=== PATIENT | male | born 1955 | race Caucasian/White ===

== ENCOUNTER 2018-08-27 16:15 | Emergency (ER) | payer MEDICARE, SELFPAY ==
[2018-08-27 16:16] VITALS: BP 95/61; PULSE 92; RESP 17; RESP 20; TEMP 37; O2SAT 98; O2SAT 99; BMI 19.3
[2018-08-27 16:24] VITALS: BP 95/61; PULSE 97; RESP 16; TEMP 37; O2SAT 99
[2018-08-27] MEDS: 0.9% Normal Saline 1,000 ML 999 ML IV ×2 (17:05→17:46)
--- NOTE | 2018-08-27 17:12 | ED.DCSUM_ITS ---
History of Present Illness Chief Complaint: General Illness Detail of Chief Complaint: malaise, dehydrated Informant: Patient, PCP Onset: Days - 2-3 Timing: Continuous Narrative: Patient has lung cancer, he had a CT showing a cavitary lesion in his right upper lobe, the tumor was smaller but the question of infection was raised so he was placed on Levaquin a couple days ago as a result. Since then he has felt nauseated, decreased appetite, states everything tastes bad but he is also getting IV chemotherapy sessions. He has had significantly decreased oral food and liquid intake is feeling lightheaded when he stands and had a near syncopal episode yesterday. Was seen in the office today and sent to the ER for IV fluids and reevaluation. He has had no fevers. States he has been breathing well, has a chronic cough that is unchanged. Nonproductive. No vomiting or diarrhea. - Past Medical History (1) Adenocarcinoma of lung Status: Chronic (2) COPD (chronic obstructive pulmonary disease) Status: Chronic (3) Atrial fibrillation Status: Chronic (4) Adrenal tumor Status: Chronic Past Medical History - Allergies and Home Meds Allergies/Adverse Reactions: Allergies No Known Allergies Allergy (Verified 08/27/18 16:24) Primary Care Physician: Melanie Herrera MD [STAFF PHYSICIAN] - Surgical History: tonsillectomy, - - left adrenalectomy; lung Smoking Status: Current every day smoker Drugs: None Review of Systems General: Reports: Malaise. Denies: Chills, Fever, Sweats Eyes: Denies: Visual changes - bilaterally, Diplopia ENT: Denies: Rhinorrhea, Sore throat Cardiovascular: Denies: Chest pain, Palpitations Respiratory: Reports: Cough, Dyspnea on exertion. Denies: Dyspnea Gastrointestinal: Reports: Nausea. Denies: Abdominal pain, Vomiting, Diarrhea, Melena, Hematochezia Genitourinary: Denies: Dysuria, Hematuria, Frequency Musculoskeletal: Denies: Back pain, Extremity Pain Skin: Denies: Rash, Wounds Neurological: Denies: Headache, Weakness, Numbness Physical Exam Vital Signs/Narrative: Vital Signs Temp Pulse Resp BP Pulse Ox 08/27/18 16:24 98.6 F 97 16 95/61 99 08/27/18 16:16 98.6 F 92 20 H 95/61 99 Inital Vital Signs reviewed: Yes General: Well nourished, Well developed, No Acute Distress Head: Normocephalic, Atraumatic Eyes: Perrl, EOMI ENT: Moist mucous membranes, No rhinorrhea Neck: Supple, Nontender Cardiovascular: Regular rate, Regular rhythm, No murmurs Respiratory: No distress, Chest nontender, Rhonchi - bilat, Wheezing - end-exp, bilat Abdomen: Soft, Nontender, Nondistended, Normal bowel sounds Back: Nontender, Normal Inspection Extremities: Nontender, No edema. Negative for: Calf Tenderness Skin: Normal color, No rash, No Trauma Neurological: Alert, Oriented x3, Cranial nerves II-XII grossly intact, Normal Strength, Normal Sensation Psychological: Normal affect, Normal Mood Diagnostic/Tx/Re-eval Laboratory Results 08/27/18 08/27/18 16:37 16:37 WBC 3.9 L RBC 2.27 L Hgb 7.3 L Hct 21.7 L MCV 95.6 H MCH 32.2 H MCHC 33.6 RDW 16.6 H RDW Differential 57.5 H Plt Count 386 MPV 9.5 Immature Gran % (Auto) 0.500 Neut % (Auto) 53.8 Lymph % (Auto) 43.2 H [place] % (Auto) 2.0 Eos % (Auto) 0.0 Baso % (Auto) 0.5 Absolute Neuts (auto) 2.1 Absolute Lymphs (auto) 1.69 Total Counted Not Reportable Differential Comment SCANNED Sodium 131 L Potassium 3.6 Chloride 98 Carbon Dioxide 25.0 Anion Gap 8 BUN 13 Creatinine 1.00 Estim Creat Clear Calc 62.81 Est GFR (MDRD) Af Amer 97 Est GFR (MDRD) Non-Af 80 BUN/Creatinine Ratio 13.0 Glucose 136 H Calcium 8.0 L - Medical Decision Making Patient was given 2 L of IV fluids, initially his blood pressure was in the 90s, afterwards it was 87 systolic. At the office his systolics were in the 105 area. He was also given some Thorazine which seemed to help his hiccups. He feels a little better. Labs look okay except for his hemoglobin which is 7.3. I have no old values to compare with. I discussed with the oncologist on-call for Dr. Herrera, Dr. Duggan. He did not have access to his old values either. He agrees that since the patient has borderline blood pressure and borderline anemia that requires transfusion if it was lower, it would be reasonable to give him a unit of blood now since he is continuing to get chemotherapy. I discussed this with the patient, he really does not want to stay in the ER anymore tonight, states he will follow-up with his oncologist after the weekend and get blood bed if he needs it, he stood up and did not feel lightheaded and basically felt much better and closer to his baseline. I am comfortable with him going home following up or returning if worse. His repeat BP is 103/58. ED Disposition - Plan for ED Patient: Disposition: Home or Assisted Living Diagnosis: Mild dehydration, Anemia, Adenocarcinoma of lung Instructions: Anemia Referrals: Melanie Herrera MD [STAFF PHYSICIAN] - 3-5 Days
[2018-08-27 17:24] LABS: Absolute Lymphocyte Count 1.69 X10^3/ul (0.83-4.51); Absolute Neutrophil Count 2.1 X10^3/uL (2.0-7.7); Basophil# 0.02 X10^3/uL; Basophil% 0.5 % (0-1); Differential Indicated SCAN CRITERIA MET; Hematocrit 21.7 % (40-54); Hemoglobin 7.3 g/dl (13.0-16.5); Lymphocyte # 1.69 X10^3/ul (4.0); Lymphocyte % 43.2 % (19-41); Mean Corp Hgb Conc 33.6 g/gl (32-36); Mean Corpuscular Hgb 32.2 pg (27.0-32.0); Mean Corpuscular Volume 95.6 fL (80-94); Mean Platelet Vol. 9.5 fl (6.2-12.0); Monocyte# 0.08 X10^3/uL; Neutrophil % 53.8 % (47-70); POSITIVE COUNT NO; POSITIVE DIFFERENTIAL NO; POSITIVE MORPHOLOGY YES; Platelet Count 386 K/mm3 (150-450); RBC Distribution Width CV 16.6 % (11.6-14.6); RBC Distribution Width SD 57.5 fl (35.1-43.9); Red Blood Count 2.27 M/mm3 (4.6-6.2); White Blood Count 3.9 K/mm3 (4.4-11.0)
[2018-08-27 17:26] LABS: Anion Gap 8 (5-15); BUN 13 mg/dL (7-18); Chloride 98 mmol/L (98-107); EST Glomerular Filtration Rate 80 mL/min (>60); Est Glom Filt Rate - Afr Amer 97 mL/min (>60); Estimated Creatinine Clearance 62.81 ml/min; Glucose 136 mg/dL (74-106); Potassium 3.6 mmol/L (3.5-5.1); Sodium Level 131 mmol/L (136-145)
[2018-08-27 17:40] LABS: Differential Comment SCANNED
[2018-08-27] MEDS: ChlorproMAZINE 50 MG/2 ML Ampul 12.5 MG IV (17:49)
[2018-08-27 18:19] VITALS: BP 87/53; PULSE 78; RESP 23; TEMP 37.3; O2SAT 95; O2SAT 96
[2018-08-27 19:37] VITALS: BP 102/66; PULSE 93; RESP 16; TEMP 36.8; O2SAT 96
--- NOTE | 2018-08-27 19:37 | ED.RN ---
PT AMBULATED IN HALLWAY, STATES HE FEELS STRENGTH IS BACK TO BASELINE.
[2018-08-27 20:17] VITALS: BP 93/59; PULSE 81; RESP 16; RESP 17; O2SAT 97
== END 2018-08-27 20:49 | disposition home or self-care (01) ==
PROVIDERS: Emergency Provider Emergency Medicine
DX: E86.0 Dehydration (principal); D64.9 Anemia, unspecified; C34.11 Malignant neoplasm of upper lobe, right bronchus or lung; J44.9 Chronic obstructive pulmonary disease, unspecified; I48.91 Unspecified atrial fibrillation; F17.200 Nicotine dependence, unspecified, uncomplicated; Z79.51 Long term (current) use of inhaled steroids; Z79.82 Long term (current) use of aspirin
CPT/HCPCS: 80048; 85025; 96361; 96374; 99285; J7030

== ENCOUNTER → 2018-09-03 | Outpatient (CLI) | payer MEDICARE, SELFPAY ==
[2018-08-27 16:16] VITALS: BMI 19.3
[2018-09-03 08:35] VITALS: BP 89/53; PULSE 74; RESP 15; TEMP 36.7; O2SAT 100; BMI 17.5
[2018-09-03] MEDS: Acetaminophen 325 MG Tablet 650 MG PO (08:44)
[2018-09-03 09:14] VITALS: BP 75/45; PULSE 64; RESP 16; TEMP 36.7; O2SAT 97
[2018-09-03 10:14] VITALS: BP 78/32; PULSE 58; RESP 15; TEMP 36.4; O2SAT 95
[2018-09-03 11:14] VITALS: BP 80/52; PULSE 64; RESP 16; TEMP 36.5; O2SAT 98
== END | disposition home or self-care (01) ==
PROVIDERS: Referring Provider Internal Medicine Hematology & Oncology; Visit Provider Internal Medicine Hematology & Oncology
DX: D64.81 Anemia due to antineoplastic chemotherapy (principal); C34.90 Malignant neoplasm of unspecified part of unspecified bronchus or lung
CPT/HCPCS: 36430; 86850; 86900; 86920; 86922; J7040; P9016; A4216